=== PATIENT | female | born 1960 | race Caucasian/White ===

== ENCOUNTER → 2016-03-25 | Outpatient (CLI) | payer BC ==
--- NOTE | 2016-03-25 15:37 | MAMMOGRAPHY REPORT ---
BILATERAL DIGITAL SCREENING MAMMOGRAM TOMOSYNTHESIS WITH CAD: 03/25/2016 CLINICAL HISTORY: Routine screening. Patient has no complaints. TECHNIQUE: Breast tomosynthesis in addition to standard 2D mammography was performed. Current study was also evaluated with a Computer Aided Detection (CAD) system. COMPARISON: Comparison is made to exams dated: 03/14/2015 mammogram, 01/10/2014 mammogram, 09/08/2012 mammogram, 07/15/2011 mammogram, and 02/08/2009 mammogram - [facility]. BREAST COMPOSITION: The tissue of both breasts is heterogeneously dense, which may obscure small ma sses. FINDINGS: There are stable punctate microcalcifications within the left breast. No suspicious mass, architectural distortion or cluster of new, suspicious microcalcifications is seen. IMPRESSION: ACR BI-RADS CATEGORY 1: NEGATIVE There is no mammographic evidence of malignancy. A 1 year screening mammogram is recommended. The p atient will receive written notification of the results. Approximately 10% of breast cancers are not detected with mammography. A negative mammographic repor t should not delay biopsy if a clinically suggestive mass is present. Linda Sahu M.D. ay/:03/25/2016 14:57:42 Soaking Room Operator: Latha Cruz, [facility] letter sent: Normal 1/2 BI-RADS Code: ACR BI-RADS Category 1: Negative
== END | disposition home or self-care (01) ==
LOC: C.MAMM 09:37
PROVIDERS: ATTEND Nurse Practitioner Family
DX: Z12.31 Encounter for screening mammogram for malignant neoplasm of breast (principal)

== ENCOUNTER → 2016-10-17 | Outpatient (CLI) | payer BC ==
[2016-10-17 21:29] LABS: LYME DISEASE AB IGG NEG (NEG); LYME DISEASE AB IGM NEG (NEG)
== END | disposition home or self-care (01) ==
LOC: C.LAB 19:47
PROVIDERS: ATTEND Family Medicine
DX: A69.20 Lyme disease, unspecified (principal); W57.XXXA Bitten or stung by nonvenomous insect and other nonvenomous arthropods, initial encounter; R21 Rash and other nonspecific skin eruption

== ENCOUNTER → 2017-09-17 | Outpatient (CLI) | payer OTHER ==
--- NOTE | 2017-09-17 16:00 | MAMMOGRAPHY REPORT ---
BILATERAL DIGITAL SCREENING MAMMOGRAM TOMOSYNTHESIS WITH CAD: 09/17/2017 TECHNIQUE: The study was acquired using full field digital technology and interpreted from soft copy. Breast tomosynthesis in addition to standard 2D mammography was performed. Current study was also ev aluated with a Computer Aided Detection (CAD) system. COMPARISON: Comparison is made to exams dated: 03/25/2016 mammogram, 03/14/2015 mammogram, 01/10/2014 mammogram, 09/08/2012 mammogram, 07/15/2011 mammogram, and 02/08/2009 mammogram - [facility]. BREAST COMPOSITION: The tissue of both breasts is heterogeneously dense, which may obscure small mass es. FINDINGS: No suspicious masses, calcifications, or areas of architectural distortion are noted in either breast . There has been no significant interval change compared to prior exams. IMPRESSION: ACR BI-RADS CATEGORY 1: NEGATIVE There is no mammographic evidence of malignancy. A 1 year screening mammogram is recommended.( 019) The patient will receive written notification of the results. Some breast cancers are not detected with mammography. A negative mammographic report should not christy y biopsy if a clinically suggestive mass is present. Gregoria Quan M.D. ah/:09/17/2017 13:44:42 Research Assistant Member: RT Saima(R)(M), [facility] letter sent: Normal 1/2 BI-RADS Code: ACR BI-RADS Category 1: Negative
== END | disposition home or self-care (01) ==
LOC: C.MAMM 13:11
PROVIDERS: ATTEND Nurse Practitioner Family
DX: Z12.31 Encounter for screening mammogram for malignant neoplasm of breast (principal)

== ENCOUNTER → 2017-09-29 | Outpatient (CLI) | payer OTHER ==
--- NOTE | 2017-09-29 12:28 | DIAGNOSTIC IMAGING REPORT ---
R FOOT MIN 3 VIEWS ROUTINE CLINICAL HISTORY: RIGHT FOOT INJURY,PAIN AT METATARSALS trauma. Pain. COMPARISON: None. DISCUSSION: Moderate degenerative change first metatarsophalangeal joint. No evidence for acute bony pathology. Mild bunion deformity distal first metatarsal. Minimal hallux valgus configuration. IMPRESSION: Degenerative change first metatarsophalangeal joint. No acute process. The above report was generated using voice recognition software. It may contain grammatical, syntax or spelling errors. Electronically signed by: Will Casas M.D. 09/29/2017 12:26 PM Dictated Date/Time: 09/29/2017 12:25 PM
== END | disposition home or self-care (01) ==
LOC: C.LAB1850 12:04
PROVIDERS: ATTEND Student in an Organized Health Care Education/Training Program
DX: S99.921A Unspecified injury of right foot, initial encounter (principal); X58.XXXA Exposure to other specified factors, initial encounter; M19.071 Primary osteoarthritis, right ankle and foot

== ENCOUNTER 2021-07-26 05:20 | Observation (INO) ==
--- NOTE | 2021-06-21 11:20 | PAT Medication Instructions ---
Medication Instructions Date of Service June 21, 2021 Home Medications alendronate 35 mg tablet 35 mg PO WK duloxetine 20 mg capsule,delayed release 20 mg PO HS multivitamin 1 tab PO QAM ascorbic acid (vitamin C) 500 mg tablet (Vitamin C) 500 mg PO HS calcium carbonate 500 mg calcium (1,250 mg) tablet 500 mg PO HS cholecalciferol (vitamin D3) 25 mcg (1,000 unit) tablet (Vitamin D3) 25 mcg PO HS diphenhydramine HCl 25 mg capsule (Benadryl) 25 mg PO DAILY PRN Continue as directed alendronate 35 mg tablet 35 mg PO WK (just do not take on morning of surgery) DO NOT take the morning of surgery multivitamin 1 tab PO QAM diphenhydramine HCl 25 mg capsule (Benadryl) 25 mg PO DAILY PRN Take evening before surgery duloxetine 20 mg capsule,delayed release 20 mg PO HS ascorbic acid (vitamin C) 500 mg tablet (Vitamin C) 500 mg PO HS calcium carbonate 500 mg calcium (1,250 mg) tablet 500 mg PO HS cholecalciferol (vitamin D3) 25 mcg (1,000 unit) tablet (Vitamin D3) 25 mcg PO HS diphenhydramine HCl 25 mg capsule (Benadryl) 25 mg PO DAILY PRN (if needed) OTHERWISE NOTHING TO EAT OR DRINK AFTER MIDNIGHT Other Notes If you have any questions please call us at [phone] or [phone] or [phone] or [phone]
--- NOTE | 2021-06-24 13:32 | Anesthesiology Consultation ---
Date of Service June 24, 2021 Assessment & Plan (1) Encounter for pre-operative examination: - COVID screening: Per assessment on 06/24/2021: Travel screen negative, no known COVID-19 positive contacts or current COVID-19 related symptoms in past 2 weeks. Patient vaccinated. Surgeon arranging preop COVID testing, scheduled 07/24/2021. Awaiting results. Chart Review Chart Review: Acceptable Risk for Surgery and Patient seen in Pre Admission Testing Teaching & Discussion Pre-Anesthesia Teaching/Discussion Notes: Instructed NPO after midnight before surgery, except medications with 15 cc of water. Medication instructions provided according to the PAT guidelines. History Surgery Operation Date: 07/26/21 14:20 Proposed Procedures p Left Anterior Total Hip Arthroplasty - Jose A Miller, Height/Weight Height: 5 ft 2 in Weight: 68.7 kg Allergies Allergy/AdvReac Type Severity Reaction Status Date / Time No Known Allergies Allergy Verified 06/21/21 08:58 Medications Home Medications Medication Instructions Recorded Confirmed Last Taken alendronate 35 mg tablet 35 mg PO WK 05/22/21 06/21/21 Unknown duloxetine 20 mg capsule,delayed 20 mg PO HS 05/22/21 06/21/21 Unknown release multivitamin 1 tab PO QAM 05/22/21 06/21/21 Unknown ascorbic acid (vitamin C) 500 mg 500 mg PO HS 06/21/21 06/21/21 Unknown tablet (Vitamin C) calcium carbonate 500 mg calcium 500 mg PO HS 06/21/21 06/21/21 Unknown (1,250 mg) tablet cholecalciferol (vitamin D3) 25 25 mcg PO HS 06/21/21 06/21/21 Unknown mcg (1,000 unit) tablet (Vitamin D3) diphenhydramine HCl 25 mg capsule 25 mg PO DAILY PRN 06/21/21 06/21/21 Unknown (Benadryl) Past Medical History Medical History (Updated 06/24/21 @ 13:58 by Kendal Dawson PA-C) Anxiety Depression GERD (gastroesophageal reflux disease) controlled, stable per pt Osteoarthritis Temporomandibular joint disorder CLICKS NO LOCKING Patient denies h/o stroke, seizures, heart attack, heart failure, DM, HTN, blood clots or blood transfusions. Exercise / Class Metabolic Activity II 4-5 Yardwork/Stairs/Walk up hill (denies CP or SOB with 1 FOS) Past Family History Family History Other No known health problems Past Surgical History Surgical History History of section History of colonoscopy History of dilatation and curettage Past Anesthesia History No Hx of Anesthesia Complications and No Family Hx of Anesthesia Complications History of PONV No Hx of PONV and No Hx of Motion Sickness Social History Smoking Status: Never smoker Do You Dip or Chew Tobacco: No Hx Alcohol Use: Yes Alcohol type: beer, wine and hard liquor alcohol intake frequency: a few times a week Hx Substance Use: No Review of Systems Occasional snoring with nasal congestion during allergy season. Denies witnessed apneas. Patient denies chest pain, shortness of breath, dyspnea on exertion, fever, chills, cough, wheezing, or palpitations. Physical Exam Vital Signs Vitals BP 146/89 (pt reports usually 120s/80s, notes is anxious regarding being in hospital today/upcoming surgery and had caffeine earlier today) P 68 TEMP 98.7 SP02 98% on RA RESP 17 Physical Full cervical extension range of motion without pain TMD 3.5 finger breaths Mallampati Score 1 Dentition: intact, missing two upper side teeth, several crowns-none in front; denies chipped or loose teeth, implants or bridges Lungs: normal respiratory effort. Clear throughout to auscultation, no adventitious breath sounds Cardiac: regular rate and rhythm, no murmurs noted Carotid arteries: negative bruit bilat Lab Results Anesthesia Preop Results Results Anesthesia Widget: WBC 5.88 K/uL (4.8-10.8) 06/24/21 Hgb 14.0 g/dL (12.0-16.0) 06/24/21 Hct 42.3 % (37-47) 06/24/21 Plt 270 K/uL (130-400) 06/24/21 Na 138 mmol/L (136-145) 06/24/21 K 4.3 mmol/L (3.5-5.1) 06/24/21 Cl 103 mmol/L (98-107) 06/24/21 CO2 33 mmol/L (21-32) H 06/24/21 BUN 15 mg/dl (6-23) 06/24/21 Creat 0.85 mg/dl (0.6-1.2) 06/24/21 Glucose Level 85 mg/dl (70-99(Fasting)) 06/24/21 PT 10.0 Seconds (9.0-12.0) 06/24/21 PTT 27.6 Seconds (21.0-31.0) 06/24/21 INR 0.9 (0.9-1.1) 06/24/21 Blood Type O Positive 06/24/21 Antibody Screen POSITIVE A 06/24/21 Testing Laboratory Results Per Cabrera in blood bank, nothing additional needed from PAT or pt regarding positive antibodies. Electrocardiogram Date: 06/24/21 NSR, rate 66 bpm Chest X-Ray Date: 01/10/21 The lungs are clear. Cardiac silhouette is normal in size. No pleural effusions. No pneumothorax. IMPRESSION: No acute process.
--- NOTE | 2021-07-25 14:04 | History & Physical Report ---
Date of Service July 25, 2021 Assessment & Plan (1) Osteoarthritis of left hip: We will proceed with a left anterior total hip arthroplasty. Postoperatively she will be started on aspirin and kept overnight for postoperative medical management. She plans to use energy physical therapy upon discharge. History of Present Illness Chief Complaint: Osteoarthritis left hip. Primary Care Provider: MAINOR Segundo Faith is a pleasant 60-year-old female whom I have seen in the past for arthritis of her left hip. Her arthritis is fairly severe. She has been doing physical therapy for a while. It helps a little bit. Unfortunately, she is havingincreased pain. She has trouble ambulating. She is starting to limp when she walks. She has some time to summer to finally have her hip replaced. She has elected to proceed with a left total hip arthroplasty.. Allergies Allergy/AdvReac Type Severity Reaction Status Date / Time No Known Allergies Allergy Verified 06/21/21 08:58 Home Medications Medication Instructions Recorded Confirmed Type alendronate 35 mg tablet 35 mg PO WK 05/22/21 06/21/21 History duloxetine 20 mg capsule,delayed 20 mg PO HS 05/22/21 06/21/21 History release multivitamin 1 tab PO QAM 05/22/21 06/21/21 History ascorbic acid (vitamin C) 500 mg 500 mg PO HS 06/21/21 06/21/21 History tablet (Vitamin C) calcium carbonate 500 mg calcium 500 mg PO HS 06/21/21 06/21/21 History (1,250 mg) tablet cholecalciferol (vitamin D3) 25 25 mcg PO HS 06/21/21 06/21/21 History mcg (1,000 unit) tablet (Vitamin D3) diphenhydramine HCl 25 mg capsule 25 mg PO DAILY PRN 06/21/21 06/21/21 History (Benadryl) Past Med/Surg History Medical History Anxiety Depression GERD (gastroesophageal reflux disease) controlled, stable per pt Osteoarthritis Temporomandibular joint disorder CLICKS NO LOCKING Surgical History History of section History of colonoscopy History of dilatation and curettage Family History Other No known health problems Social History Smoking Status: Never smoker Second Hand Exposure: No; Hx Alcohol Use: Yes Alcohol type: beer, wine and hard liquor Hx Substance Use: No Preferred Language: Citizen Of [place] Communication Ability: Effective Blanket Winder Operator Required: No Beliefs That Will Affect Care: Buddhist Buddhist Beliefs: TIO Current Living Situation: Alone current occupational status: employed 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 Physical Exam On physical examination of the left hip, she walks with a antalgic gait. She has decreased range of motion. She has pain with internal and external rotation of the left hip.. Constitutional WD/WN, vitals as above Eyes PERRL, conjunctivae normal, anicteric sclerae ENMT external ear and nose normal, oropharynx normal Neck trachea midline, no thyromegaly Respiratory normal respiratory effort Cardiovascular RRR, no murmur, no edema Gastrointestinal (Abdomen) normal bowel sounds, soft, nontender, no hepatosplenomegaly Psychiatric A+Ox3, euthymic affect Results & Data Results & Data Laboratory Results . Diagnostic Findings X-rays of the left hip show advanced osteoarthritis with joint space narrowing, osteophyte formation, and [id number] articulation.. PG Care Time/CCT Total # of Minutes Spent Total Time Spent with Patient: Total time spent is greater than 50% in coordination of care (as documented) at patient's floor/unit and/or counseling patient: Coding Level of Care Code None Diagnoses Osteoarthritis of left hip M16.12
[2021-07-26] MEDS ORDERED: Ketorolac (*for OR use only*) 30 MG, dexAMETHasone 4 MG, KETAMINE HCL (**OR use only) 1... INFIL SCH (06:00)
[2021-07-26] MEDS ORDERED: ACETAMINOPHEN 500 MG TAB PO SCH (06:00)
[2021-07-26] MEDS ORDERED: FAMOTIDINE 20 MG TAB PO SCH (06:00)
[2021-07-26] MEDS ORDERED: LR 60ML/HR IV SCH (06:00)
[2021-07-26] MEDS ORDERED: GABAPENTIN 600 MG DOSE PO SCH (06:00)
[2021-07-26] MEDS ORDERED: TRANEXAMIC ACID 1,000 MG **IV Pre-op IV SCH (06:00)
[2021-07-26] MEDS ORDERED: Scopolamine 1 MG TDSY TD SCH (06:00)
[2021-07-26] MEDS ORDERED: dexAMETHasone 4 MG TAB PO SCH (06:00)
[2021-07-26] MEDS ORDERED: TRANEXAMIC ACID 1,000 MG **IV Intra-op IV SCH (06:00)
[2021-07-26] MEDS ORDERED: ceFAZolin 2000MG 2,000 MG/15 ML SYR IV SCH (06:00)
[2021-07-26] MEDS ORDERED: LR 500ML BOLUS, THEN 15ML/HR IV SCH (06:00)
--- NOTE | 2021-07-26 06:22 | History & Physical Bridge Note ---
Date of Service July 26, 2021 History & Physical Bridge Note I have examined the patient, reviewed the History & Physical and in the interval since the performance of the History & Physical I have noted the following changes of clinical significance: no changes noted
[2021-07-26] MEDS ORDERED: TRANEXAMIC ACID 100 MG/ML 10 ML VIAL IV ONE (06:27)
[2021-07-26] MEDS ORDERED: fentaNYL citrate 100 MCG/2 ML VIAL ONE (06:33)
[2021-07-26] MEDS ORDERED: MIDAZOLAM HCL 1 MG/ML 2ML VIAL ONE (06:33)
[2021-07-26] MEDS ORDERED: BUPIVACAINE 0.5 % 5 MG/1 ML PF 10ML VIAL ONE (06:34)
[2021-07-26] MEDS ORDERED: ORTHO JOINT ANESTHETIC ONE (06:36)
[2021-07-26] MEDS ORDERED: ATROPINE SULFATE 0.1 MG/ML 10ML SYR IV PRN (07:36)
[2021-07-26] MEDS ORDERED: LABETALOL HCL IV 5 MG/ML 20ML IV PRN (07:36)
[2021-07-26] MEDS ORDERED: fentaNYL citrate 100 MCG/2 ML VIAL IV PRN (07:36)
[2021-07-26] MEDS ORDERED: ePHEDrine sulfate 50 MG/ML AMP IV PRN (07:36)
[2021-07-26] MEDS ORDERED: PHENYLEPHRINE 100MCG/ML 5ML SYR IV PRN (07:36)
[2021-07-26] MEDS ORDERED: MEPERIDINE HCL 25 MG/ML CARP/VIAL IV PRN (07:36)
[2021-07-26] MEDS ORDERED: ONDANSETRON INJ 2 MG/ML 2 ML VIAL IV PRN ×2 (07:36→10:28)
[2021-07-26] MEDS ORDERED: HYDROmorphone INJ 1 MG/ML SYRINGE IV PRN (07:36)
--- NOTE | 2021-07-26 08:07 | Operative Report ---
PG Post Operative Report Pre & Post Diagnosis Operation Date: 07/26/21 07:00 Pre-Op Diagnosis: Left Hip Osteoarthritis Post-Op Diagnosis: Left Hip Osteoarthritis I identified the patient and participated in the time-out.: Yes Procedure Operation Date: 07/26/21 07:00 Actual Procedures p Left Anterior Total Hip Arthroplasty(Left) - Jose A Miller DO Surgeon Jose A Miller, Radiological Defense Officer Jose A Nicole PAC Estimated Blood Loss 150 Findings Consistent with Post-Op Diagnosis Specimens Left femoral head Complications none Disposition Disposition: Recovery Room Indications Faith is a pleasant 60-year-old female who presented my office with complaints of chronic increasing left hip and groin pain. X-rays and clinical examination were diagnostic for advanced arthritis of the left hip. After failing conservative treatment, she elected proceed with a left anterior total hip arthroplasty. Description of Procedure Implants used I used a Zimmer[employer]omet total hip arthroplasty system with a size 2 standard offset Avenir Complete stem, a 48 mm G7 cup with a 25mm screw, an E1 polyethylene liner, a 32 mm ceramic head with a +3.5 neck. Faith arrived at the hospital for the above procedure. She was seen in the preoperative holding area and the operative extremity was identified and signed. She was given a spinal anesthetic, a preoperative antibiotic, and TXA. She was then taken back to the operating room and laid on the table in the supine position. She was given basic sedation. The operative leg was secured to a Puristst leg positioner. The hip was then prepped and draped in sterile fashi on. A timeout was done and the patient and the operative extremity was properly identified. An anterior approach was used. Dissection was taken down through the fascia and the tensor muscle belly was retracted laterally and the rectus was retracted medially. The circumflex vessels were identified and ligated. The capsule was then incised and tagged for later repair. The femoral neck was then cut and the femoral head was removed. The acetabulum was exposed. Time was spent doing a complete circumferential labral release. Sequential reaming of the acetabulum up to a size 47 reamer was done. Final reamings were done under fluoroscopy to ensure appropriate version. A Biomet 48mm G7 cup was then impacted into place. A single 25 mm screw was placed. The E1 polyethylene liner was then snapped into place. Surrounding soft tissues were then injected with 100 cc of an orthopedic pain control cocktail. The proximal femur was then exposed. Sequential broaching up to a size 2 broach was done. Off that broach a size 32 head with a +3.5 neck was trialed. The hip was reduced and fluoroscopic images showed anatomic alignment of the implants in acceptable length. The broach was removed. The final size 2 standard offset Avenir Complete stem was then impacted into place. A ceramic 32mm head with a +3.5 neck was then impacted onto the stem and the hip was reduced. Final fluoroscopic images showed anatomic alignment of the hip. The capsule was then closed with #1 Vicryl suture. A dilute betadyne lavage was then done for 3 minutes. The joint was then irrigated with normal saline solution. The fascia was closed with #1 PDS suture. Skin was closed with 2-0 Vicryl, neptali, and a Silverlon dressing. She was then transferred to a hospital bed and taken to the post anesthesia care unit in stable condition. She tolerated the procedure well. Jose A Nicole PA-C, was present for the entire procedure. He was critical for patient positioning, prepping, draping, retraction exposure, wound closure and application of sterile dressing. I attest to the content of the Intraoperative Record and any orders documented therein. Any exceptions are noted below.
[2021-07-26] MEDS ORDERED: LIDOCAINE 2% 2 ML VIAL/AMP(20MG/ML) INFIL ONE (08:11)
[2021-07-26] MEDS ORDERED: PROPOFOL IV EMULSION 10 MG/ML 20 ML VIAL IV ONE ×3 (08:11)
[2021-07-26] MEDS ORDERED: ONDANSETRON INJ 2 MG/ML 2 ML VIAL ONE (08:11)
[2021-07-26] MEDS ORDERED: ePHEDrine sulfate 50 MG/ML AMP ONE (08:12)
--- NOTE | 2021-07-26 08:16 | Fluoroscopy Report ---
FL hip LT 1V HISTORY: 60 years-old Female LT ANTERIOR left hip total joint arthroplasty COMPARISON: Left hip radiographs 05/22/2021 TECHNIQUE: 2 spot fluoroscopic images of the left hip were obtained utilizing 22.6 seconds fluoroscop y time FINDINGS: Satisfactory alignment of the left hip total joint arthroplasty with expected postoperative soft tiss ue swelling and deep tissue air. No acute fracture or unexpected opaque foreign bodies. IMPRESSION: Fluoroscopic assistance as above. ACT 112: Negative or not required by law. The above report was generated using voice recognition software. It may contain grammatical, syntax o r spelling errors. Electronically signed by: Veto Vernon M.D. 07/26/2021 8:15 AM
--- NOTE | 2021-07-26 08:55 | XRay Report ---
XR hip 1V LT w pelvis HISTORY: 60 years-old Female IN PACU - A/P PELVIS and LATERAL HIP left hip total joint arthroplasty COMPARISON: Hip radiographs 05/22/2021 TECHNIQUE: AP view of the pelvis with crosstable lateral view of the left hip FINDINGS: Mild right hip osteoarthritis. Satisfactory alignment of the left hip total joint arthroplasty. Later al skin neptali are noted along with expected postoperative soft tissue swelling and deep tissue air. No acute fracture or unexpected opaque foreign body. IMPRESSION: Left hip total joint arthroplasty with expected postoperative changes. ACT 112: Negative or not required by law. The above report was generated using voice recognition software. It may contain grammatical, syntax o r spelling errors. Electronically signed by: Veto Vernon M.D. 07/26/2021 8:54 AM
--- NOTE | 2021-07-26 09:29 | Anesthesiology Progress Note ---
Date of Service July 26, 2021 Anesthesia Post Procedure Vital Signs Vital Signs: Temp Pulse Pulse Resp BP Pulse Ox 07/26/21 09:25 60 17 114/66 99 07/26/21 09:15 59 L 13 108/70 97 07/26/21 09:05 36.1 C L 67 18 121/71 95 07/26/21 08:55 71 18 115/65 96 07/26/21 08:45 68 18 111/66 98 07/26/21 08:35 63 18 105/58 L 100 07/26/21 08:28 36.0 C L 65 12 100/54 L 98 07/26/21 05:36 36.7 C 75 18 138/97 96 Transfer of Care Handoff Completed per policy Notes Mental Status: alert / awake / arousable Patient Amnestic to Procedure: Yes Nausea / Vomiting: adequately controlled Pain: adequately controlled Airway Patency, RR, SpO2: stable & adequate BP & HR: stable & adequate Hydration State: stable & adequate Neuraxial Anesthesia: was administered and sensory block is resolving Anesthetic Complications: no major complications apparent and Pt Satisfied with anesthetic care
[2021-07-26] MEDS ORDERED: bisacodyL 10 MG SUPP PR PRN (10:28)
[2021-07-26] MEDS ORDERED: diphenhydrAMINE Capsule 25 MG CAP PO PRN (10:28)
[2021-07-26] MEDS ORDERED: METOCLOPRAMIDE HCL INJ 5 MG/ML 2 ML VIAL IV PRN (10:28)
[2021-07-26] MEDS ORDERED: NALOXONE HCL 0.4 MG/1 ML VIAL/CARP IV PRN (10:28)
[2021-07-26] MEDS ORDERED: MAGNESIUM HYDROXIDE SUSP 30 ML UDC PO PRN (10:28)
[2021-07-26] MEDS ORDERED: HYDROmorphone INJ 0.5 MG/0.5 ML SYR IV PRN (10:28)
[2021-07-26] MEDS: SODIUM CHLORIDE 0.9% 1000ML 1,000 ML IV SCH ×2 (11:15→20:14)
[2021-07-26] MEDS: DOCUSATE SODIUM 100 MG CAP PO SCH ×2 (13:19→20:19)
[2021-07-26] MEDS: KETOROLAC 30 MG/ML VIAL IV SCH ×2 (13:19→18:04)
[2021-07-26] MEDS: MULTIVITAMIN TAB PO SCH (13:19)
[2021-07-26] MEDS: ACETAMINOPHEN 500 MG TAB PO SCH ×2 (15:59→22:00)
[2021-07-26] MEDS: ceFAZolin 2000MG 2,000 MG/15 ML SYR IV SCH ×2 (15:59→21:59)
[2021-07-26] MEDS ORDERED: Scopolamine CHECK PATCH PLACEMENT SCH (16:00)
[2021-07-26] MEDS: ASPIRIN 81 MG ECTAB PO SCH (20:20)
[2021-07-26] MEDS: oxyCODONE HCL IR 5 MG TAB (IMMEDIATE RELEASE) PO PRN (20:23)
[2021-07-26] MEDS ORDERED: SENNA 8.6 MG TAB PO SCH (21:00)
[2021-07-26] MEDS ORDERED: DULoxetine HCL 20 MG CAP PO SCH (21:00)
[2021-07-27] MEDS: KETOROLAC 30 MG/ML VIAL IV SCH ×3 (00:37→06:33)
[2021-07-27] MEDS: oxyCODONE HCL IR 5 MG TAB (IMMEDIATE RELEASE) PO PRN ×2 (02:16→03:24)
[2021-07-27] MEDS: ACETAMINOPHEN 500 MG TAB PO SCH (05:49)
[2021-07-27] MEDS ORDERED: ALENDRONATE SODIUM 70 MG TAB PO SCH (06:30)
--- NOTE | 2021-07-27 07:10 | Orthopedic Progress Note ---
Date of Service July 27, 2021 Assessment & Plan (1) Status post left hip replacement: Overall she is doing very well. She is not having much pain in the left hip. She will be seen by physical therapy today for ambulation and range of motion exercises. She is on aspirin for DVT prophylaxis. She can be discharged home later today. She will follow-up with orthopedics in 2 weeks. Subjective Faith was seen and examined at bedside this morning. Overall she is doing very well. She is not having much pain in the left hip. She has been up and ambulating to the bathroom. She has no complaints.. Review of Systems All systems reviewed & are unremarkable except as noted in HPI & below. Physical Exam On physical examination of the left hip, the dressing is clean and dry. Her leg lengths are equal. She has active dorsiflexion plantarflexion of her left ankle.. Results & Data Results & Data Laboratory Results . Diagnostic Findings Postoperative x-rays of the left hip show the prosthesis to be in anatomic alignment without any evidence of fracture, desiccation, or loosening. PG Care Time/CCT Total # of Minutes Spent Total Time Spent with Patient: Total time spent is greater than 50% in coordination of care (as documented) at patient's floor/unit and/or counseling patient: Coding Level of Care Code 24399 Post Operative Follow-Up Diagnoses Status post left hip replacement Z96.642
--- NOTE | 2021-07-27 07:11 | Discharge Summary ---
Date of Service July 27, 2021 Admission HPI (Per Admitting) Faith is a pleasant 60-year-old female whom I have seen in the past for arthritis of her left hip. Her arthritis is fairly severe. She has been doing physical therapy for a while. It helps a little bit. Unfortunately, she is havingincreased pain. She has trouble ambulating. She is starting to limp when she walks. She has some time to summer to finally have her hip replaced. She has elected to proceed with a left total hip arthroplasty.. Admission Exam (Per Admitting) On physical examination of the left hip, she walks with a antalgic gait. She has decreased range of motion. She has pain with internal and external rotation of the left hip.. Principal Diagnosis Same as "Discharge Diagnosis" noted below under Discharge Instructions. Discharge Exam On physical examination of the left hip, the dressing is clean and dry. Her leg lengths are equal. She has active dorsiflexion plantarflexion of her left ankle.. Discharge Data Procedures Performed Operation Date: 07/26/21 07:00 Actual Procedures p Left Anterior Total Hip Arthroplasty(Left) - Jose A Miller DO Ordered Studies 07/26/21 07:00 FL hip LT 1V Routine Hospital Course (1) Status post left hip replacement: On July 26, 2021 Faith arrived at [facility] and underwent a left hip replacement without complication. She had a spinal anesthetic. Postoperatively she was started on aspirin for DVT prophylaxis and transferred to the general orthopedic floors. Her hospital course was uneventful. On postop day #1, her vital signs were stable and her pain was well controlled. She was able to participate well with physical therapy doing ambulation and range of motion exercises. She was then discharged home. She will follow-up with orthopedics in 2 weeks. PG Care Time/CCT Total # of Minutes Spent Total Time Spent with Patient: Total time spent is greater than 50% in coordination of care (as documented) at patient's floor/unit and/or counseling patient: Discharge Plan Discharge Items Patient Disposition: Home - Home Health Services Reason For Visit: Left Hip Osteoarthritis Discharge Diagnosis: Left hip replacement Activity: Per Instructions section Non-emergency contact: Surgeon Call non-emergency contact if: your wound has increased redness and your wound has increased drainage Follow-up/Referrals: Schrack,Suri, LATHE MECH[employer]IC [Primary Care Provider] - Diet: Regular Addtl Attending Provider Instructions: Activity and Therapy Recommendations: * If you are using [facility] then therapy will be provided at your home until they feel you have accomplished all of your goals. * If you are using [facility] then Physical Therapy will be provided until they feel you are ready to start Outpatient Physical Therapy. * If you are not using home therapy then Outpatient Physical Therapy should start about 3-5 days from your day of surgery. Therapy will last about 6-10 weeks * You were shown a series of exercises in the hospital. Do these exercises three times each day including the exercises you were shown in physical therapy. * Get up and walk several times each day.~ For the first four weeks, try not to stand or walk for more than one hour at a time. If you do stand or walk for more than one hour, you will not hurt anything, but your leg will likely swell.~~ * As you feel comfortable, you may change from the walker or crutches to a cane and~then to independent walking. Medications: * Narcotic You will likely be sent home from the hospital with a prescription for the narcotic pain medication that worked best throughout your stay. * Aspirin Most patients will be required to take Aspirin 81mg twice a day for 6 weeks after surgery. This is obtained [id number] and a prescription is not necessary. * Other medications may be prescribed for specific circumstances. If you have any questions, please call the office at . * Resume previous home medications unless otherwise instructed TEDs/Elastic Stockings: The white elastic stockings help limit swelling and prevent blood clots from forming in your legs. The more you wear them, the more they work. Wear them for six weeks. Dressing Care: Leave the Silverlon dressing in place for 7 days. After 7 days you may remove the dressing. If the incision is not draining then you may leave the neptali open to air. If there is a little bit of drainage or if the neptali are getting stuck on your clothing then cover the incision with a dry dressing. The neptali will be removed at your 2 week follow-up appointment. Showering: You may shower with the Silverlon dressing in place. Do not let the shower spray hit the dressing directly. Pat the Silverlon dressing dry. If the dressing becomes wet underneath, then simply remove the dressing. Keep the incision dry until you are 7 days out from the day of surgery. After 7 days you may remove the Silverlon dressing and shower with the neptali exposed. Let soapy water run over the neptali and pat them dry. Do not scrub or soak the incision. Things To Watch For: * Drainage from the incision site that occurs more than one week after your surgery. * Increased redness at the incision site. * Fever above 102 degrees Fahrenheit. * Unusual chest pain or shortness of breath. * Call [facility] at with any of the above problems Follow-Up Visit: Follow-up with Dr. Miller's PA (Jose A Nicole) 2-3 weeks after your day of surgery. He will remove your neptali and answer any questions. If you have any additional questions or concerns, Dr Miller is usually in the office at the same time and will be available An appointment was probably scheduled when you signed-up for surgery in the office. If you have any questions call Office Instructions: More detailed instructions as well as Frequently Asked Questions were provided in a folder by our office when you signed-up for surgery. Please review these instructions when you get home. If you have any further questions or concerns, please feel free to call the office at [phone] Pending Studies at Discharge: No Stand-Alone Forms: My [facility] Medications and DC Order Prescriptions: New oxycodone-acetaminophen 5-325 mg tablet 1 tab PO Q6H PRN (Reason: pain) Qty: 30 RF: 0 aspirin 81 mg Tablet,Delayed Release (Dr/Ec) 81 mg PO BID 42 Days Qty: 84 RF: 0 Continued duloxetine 20 mg capsule,delayed release(DR/EC) 20 mg PO HS RF: 0 alendronate 35 mg tablet 35 mg PO WK RF: 0 multivitamin Tablet 1 tab PO QAM RF: 0 calcium carbonate [Calcium 500] 500 mg calcium (1,250 mg) Tablet 500 mg PO HS RF: 0 ascorbic acid (vitamin C) [Vitamin C] 500 mg Tablet 500 mg PO HS RF: 0 cholecalciferol (vitamin D3) [Vitamin D3] 25 mcg (1,000 unit) Tablet 25 mcg PO HS RF: 0 diphenhydramine HCl [Benadryl] 25 mg Capsule 25 mg PO DAILY PRN (Reason: Allergy Symptoms) RF: 0 Discharge Orders: Discharge Order (Routine); Ordered 07/27/21 Ordered By: Jose A Miller Admission Data Admit Date/Time: 07/26/21 08:29 Attending Provider: Jose A Miller Admit Provider: Jose A Miller Primary Care Provider: Suri Babcock
[2021-07-27] MEDS ORDERED: dexAMETHasone 4 MG TAB PO SCH (08:00)
[2021-07-27] MEDS: ASPIRIN 81 MG ECTAB PO SCH (08:07)
[2021-07-27] MEDS: MULTIVITAMIN TAB PO SCH (08:07)
[2021-07-27] MEDS: DOCUSATE SODIUM 100 MG CAP PO SCH (08:07)
== END 2021-07-27 11:16 | disposition home health service (06) ==
LOC: 3E 05:20 → ASU 05:20